=== PATIENT | female | born 1990 | race Caucasian/White ===

== ENCOUNTER 2018-03-13 19:30 | Inpatient (IN) | payer OTHER ==
--- NOTE | 2018-03-13 20:25 | HP ---
CIWA Score - CIWA Score Nausea/Vomitin-Mild Nausea/No Vomiting Muscle Tremors: 4-Moderate,w/Arms Extend Anxiety: 4-Mod. Anxious/Guarded Agitation: 4-Moderately Restless Paroxysmal Sweats: No Perspiration Orientation: 3-Disoriented Date>2 days Tacttile Disturbances: 0-None Auditory Disturbances: 0-None Visual Disturbances: 0-None Headache: 3-Moderate CIWA-Ar Total Score: 19 Admission ROS B[facility] - HPI Chief Complaint: SEEKING DETOX TXMENT FOR ALCOHOL WITHDRAWAL Allergies/Adverse Reactions: Allergies Allergy/AdvReac Type Severity Reaction Status Date / Time No Known Allergies Allergy Verified 03/13/18 20:21 History of Present Illness: 27 Y.O. FEMALE WITH LONG HX/O ALCOHOL HERE FOR DETOX. SHE IS SELF REFERRED. KNOWN TO OTHER DETOX PROGRAMS. LAST BEING 2 YEARS AGO AT [facility] [place]. STATES LONGEST CLEAN TIME 8 MONTHS WHILE INCARCERATED. DENIES HX/O SEIZURES, DT, BLACKOUTS, SI. PMHX: DENIES PSYCH: BIPOLAR, DEPRESSION, ANXIETY, PTSD Exam Limitations: No Limitations - Ebola screening Have you traveled outside of the country in the last 21 days: No Have you had contact with anyone from an Ebola affected area: No Have you been sick,other than usual withdrawal symptoms: No Do you have a fever: No - Review of Systems Constitutional: Chills, Loss of Appetite, Night Sweats, Changes in sleep EENT: reports: Nose Congestion Respiratory: reports: No Symptoms reported Cardiac: reports: No Symptoms Reported GI: reports: Nausea, Poor Appetite, Poor Fluid Intake : reports: No Symptoms Reported Musculoskeletal: reports: No Symptoms Reported Integumentary: reports: No Symptoms Reported Neuro: reports: No Symptoms reported Endocrine: reports: No Symptoms Reported Hematology: reports: No Symptoms Reported Psychiatric: reports: Anxious, Depressed Other Systems: Reviewed and Negative Patient History - Patient Medical History Hx Anemia: No Hx Asthma: No Hx Chronic Obstructive Pulmonary Disease (COPD): No Hx Cancer: No Hx Cardiac Disorders: No Hx Congestive Heart Failure: No Hx Hypercholesterolemia: No Hx Pacemaker: No HX Cerebrovascular Accident: No Hx Seizures: No Hx Dementia: No Hx Diabetes: No Hx Gastrointestinal Disorders: No Hx Liver Disease: No Hx Genitourinary Disorders: No Hx Sexually Transmitted Disorders: No Hx Renal Disease (ESRD): No Hx Thyroid Disease: No Hx Human Immunodeficiency Virus (HIV): No Hx Hepatitis C: No Hx Depression: Yes Hx Suicide Attempt: No Hx Bipolar Disorder: Yes Hx Schizophrenia: No Other Medical History: ANXIETY - Patient Surgical History Past Surgical History: No - PPD History Previous Implant?: Yes Documented Results: Negative w/o proof Implanted On Prior R Admission?: No PPD to be Administered?: Yes - Reproductive History Patient is a Female of Child Bearing Age (11 -55 yrs old): Yes Last Menstrual Period: 02/18/18 LMP comment: REG Patient : No (NE[facility] [place] - Smoking Cessation Smoking history: Current every day smoker Have you smoked in the past 12 months: Yes Aproximately how many cigarettes per day: 20 Cigars Per Day: 0 Hx Chewing Tobacco Use: No Initiated information on smoking cessation: Yes 'Breaking Loose' booklet given: 03/13/18 - Substance & Tx. History Hx Alcohol Use: Yes Hx Substance Use: Yes Substance Use Type: Alcohol, Cocaine Hx Substance Use Treatment: Yes ([facility]) - Substances Abused VODKA Route: Oral Frequency: Daily Amount used: 3LITERS Age of first use: 17 Date of Last Use: 03/13/18 COCAINE Route: Inhalation Frequency: 3-6 times per week Amount used: 1GM Q 2WK Age of first use: 22 Date of Last Use: 03/12/18 NADYA Route: Oral Frequency: 3-6 times per week Amount used: 1GM Q 2WK Age of first use: 23 Date of Last Use: 03/12/18 Family Disease History - Family Disease History Family History: Denies Admission Physical Exam [facility] Physical General Appearance: Yes: Appropriately Dressed, Mild Distress, Irritable HEENTM: Yes: EOMI, Normocephalic, Normal Voice, MARISA, Pharynx Normal Respiratory: Yes: Chest Non-Tender, Lungs Clear, Normal Breath Sounds, No Respiratory Distress, No Accessory Muscle Use Neck: Yes: No masses,lesions,Nodules, Supple, Trachea in good position Breast: Yes: Breast Exam Deferred Cardiology: Yes: Regular Rhythm, Regular Rate, S1, S2 Abdominal: Yes: Normal Bowel Sounds, Non Tender, Soft Genitourinary: Yes: Within Normal Limits Back: Yes: Normal Inspection Musculoskeletal: Yes: full range of Motion, Gait Steady Extremities: Yes: Normal Range of Motion, Non-Tender Neurological: Yes: Alert, Motor Strength 5/5, Disoriented (DATE) Integumentary: Yes: Normal Color, Dry, Cold Lymphatic: Yes: Within Normal Limits - Diagnostic (1) Alcohol dependence with uncomplicated withdrawal Current Visit: Yes Status: Acute (2) MDMA abuse Current Visit: Yes Status: Chronic (3) Nicotine dependence Current Visit: Yes Status: Chronic Qualifiers: Nicotine product type: cigarettes Substance use status: uncomplicated Qualified Code(s): F17.210 - Nicotine dependence, cigarettes, uncomplicated (4) Substance induced mood disorder Current Visit: Yes Status: Suspected (5) Cocaine dependence, uncomplicated Current Visit: Yes Status: Chronic Cleared for Admission [facility] - Detox or Rehab [facility] Level of Care: Medically Managed Detox Regimen/Protocol: Librium Claeared for Rehab Admission: No
[2018-03-13] MEDS ORDERED: IBUPROFEN 400 MG TABLET (FP) PO PRN (20:39)
[2018-03-13] MEDS ORDERED: chlordiazePOXIDE HCL 25 MG CAPSULE PO PRN (20:39)
[2018-03-13] MEDS ORDERED: NICOTINE POLACRILEX 2 MG GUM BC PRN (20:39)
[2018-03-13] MEDS ORDERED: MAGNESIUM HYDROX 2400MG/30ML ORAL SUSPENSION 30 ML CUP PO PRN (20:39)
[2018-03-13] MEDS ORDERED: MAG HYDROX/AL HYDROX/SIMETH 30 ML UNIT-DOSE CUP PO PRN (20:39)
[2018-03-13] MEDS ORDERED: hydrOXYzine PAMOATE 50 MG CAPSULE (FP) PO PRN (20:39)
[2018-03-13] MEDS ORDERED: LOPERAMIDE HCL 2 MG CAPSULE PO PRN (20:39)
[2018-03-13] MEDS ORDERED: ACETAMINOPHEN 325 MG TABLET (FP) PO PRN (20:39)
[2018-03-13] MEDS ORDERED: MENTHOL/PHENOL 1 EACH UD MM PRN (20:39)
[2018-03-13] MEDS ORDERED: MAGNESIUM CITRATE 300 ML BOTTLE PO PRN (20:39)
[2018-03-13] MEDS ORDERED: guaiFENesin/D-METHORPHAN HB 10 ML UNIT-DOSE CUPS PO PRN (20:39)
[2018-03-13] MEDS ORDERED: P-EPHED 60MG/TRIPROLIDI 2.5MG TABLET PO PRN (20:39)
[2018-03-13 20:53] VITALS: BMI 31.2
[2018-03-13] MEDS ORDERED: MELATONIN 5 MG TABLETS PO PRN (22:00)
[2018-03-13] MEDS: THIAMINE HCL 100 MG TABLET (FP) PO SCH (22:16)
[2018-03-13] MEDS: chlordiazePOXIDE HCL 25 MG CAPSULE PO SCH (22:16)
[2018-03-13 23:20] LABS: URINE APPEARANCE CLEAR; URINE BILIRUBIN NEGATIVE (<2.0 mg/dL); URINE BLOOD NEGATIVE (NEGATIVE); URINE COLOR YELLOW; URINE GLUCOSE (UA) NEGATIVE (NEGATIVE); URINE KETONE 1+ (NEGATIVE); URINE LEUK ESTERASE NEGATIVE (NEGATIVE); URINE NITRITE NEGATIVE (NEGATIVE); URINE PROTEIN NEGATIVE (NEGATIVE)
[2018-03-14] MEDS: chlordiazePOXIDE HCL 25 MG CAPSULE PO SCH ×4 (05:54→22:09)
[2018-03-14 10:30] LABS: HEMATOCRIT 36.1 % (32.4-45.2); HEMOGLOBIN 12.7 GM/dL (10.7-15.3); MCH 32.9 pg (25.7-33.7); MCHC 35.2 g/dl (32.0-36.0); MEAN CELL VOLUME 93.4 fl (80-96); MEAN PLT VOLUME 9.5 fl (7.5-11.1); PLATELET COUNT 178 K/MM3 (134-434); RBC 3.87 M/mm3 (3.60-5.2); RDW 13.3 % (11.6-15.6); WHITE BLOOD COUNT 5.2 K/mm3 (4.0-10.0)
[2018-03-14 10:39] LABS: ALBUMIN 3.4 g/dl (3.4-5.0); ANION GAP 5 (8-16); BLOOD UREA NITROGEN 15 mg/dL (7-18); CALCIUM 8.4 mg/dL (8.5-10.1); CHLORIDE 107 mmol/L (98-107); CO2 28 mmol/L (21-32); GLUCOSE,RANDOM 120 mg/dL (74-106); POTASSIUM 3.7 mmol/L (3.5-5.1); SGOT/AST 14 U/L (15-37); SGPT/ALT 19 U/L (12-78); SODIUM 140 mmol/L (136-145)
[2018-03-14 10:42] LABS: ALK PHOS 69 U/L (45-117); BILIRUBIN,TOTAL 0.4 mg/dL (0.2-1.0); CREATININE 0.6 mg/dL (0.55-1.02); TOT PROT 6.4 g/dl (6.4-8.2)
[2018-03-14] MEDS: PRENATAL VITAMINS W/ FOLIC ACID TABLET (FP) PO SCH (11:07)
--- NOTE | 2018-03-14 13:42 | CONSULT ---
[facility] Psychiatric Consult - Data Date of interview: 03/14/18 Admission source: [facility] Identifying data: Patient is a 27 year old female, domiciled, mother of one and currently unemployed. This is patient's first admission to [facility]. Pt. admitted to for alcohol and cocaine dependence. Substance Abuse History: Smoking Cessation. Smoking history: Current every day smoker. Have you smoked in the past 12 months: Yes. Aproximately how many cigarettes per day: 20. Cigars Per Day: 0. Hx Chewing Tobacco Use: No. Initiated information on smoking cessation: Yes. 'Breaking Loose' booklet given : 03/13/18. - Substance & Tx. History. Hx Alcohol Use: Yes. Hx Substance Use : Yes. Substance Use Type: Alcohol, Cocaine. Hx Substance Use Treatment: Yes ( [facility]). - Substances Abused. VODKA. Route: Oral. Frequency: Daily. Amount used: 3LITERS. Age of first use: 17. Date of Last Use: 03/13/18. COCAINE. Route: Inhalation. Frequency: 3-6 times per week. Amount used: 1GM Q 2WK. Age of first use: 22. Date of Last Use: 03/12/18. NADYA. Route: Oral. Frequency: 3-6 times per week. Amount used: 1GM Q 2WK. Age of first use : 23. Date of Last Use: 03/12/18 Medical History: Denies. Psychiatric History: Patient reports seeing a psychiatrist while in [facility]. States she was diagnosed with depression and anxiety. Reports being prescribed wellbutrin 300mg XL and Gabapentin 300mg TID. Pt. was incarcerated for a total of eight months for gun charges and tampering for evidence. Pt. was released from [facility] on saturday therefore has not taken medications since her release. Pt. denies h/o psychiatric hospitalization, outpatient care, and suicide attempt. Physical/Sexual Abuse/Trauma History: Denies. Mental Status Exam - Mental Status Exam Alert and Oriented to: Time, Place, Person Cognitive Function: Good Patient Appearance: Well Groomed Mood: Withdrawn, Euthymic Affect: Mood Congruent Patient Behavior: Cooperative Speech Pattern: Appropriate Voice Loudness: Normal Thought Process: Goal Oriented Thought Disorder: Not Present Hallucinations: Denies Suicidal Ideation: Denies Homicidal Ideation: Denies Insight/Judgement: Poor Sleep: Poorly Appetite: Fair Muscle strength/Tone: Normal Gait/Station: Other (Did not observe patient's gait) Psychiatric Findings - Problem List ([place] 1, 2,3) (1) Alcohol dependence with uncomplicated withdrawal Current Visit: Yes Status: Acute (2) Cocaine dependence, uncomplicated Current Visit: Yes Status: Chronic (3) Nicotine dependence Current Visit: Yes Status: Chronic Qualifiers: Nicotine product type: cigarettes Substance use status: uncomplicated Qualified Code(s): F17.210 - Nicotine dependence, cigarettes, uncomplicated (4) Substance induced mood disorder Current Visit: Yes Status: Acute - Initial Treatment Plan Initial Treatment Plan: Psychoeducation provided. Detoxification in progress. Wellbutrin 150mg XL + gabapentin 300mg TID + Trazodone 50mg qhs ordered. Benefits and side effects discussed. Verbal consent given. Will continue to monitor.
--- NOTE | 2018-03-14 14:19 | PN ---
S CIWA - CIWA Score Nausea/Vomitin Muscle Tremors: 3 Anxiety: 3 Agitation: 3 Paroxysmal Sweats: 1-Minimal Palms Moist Orientation: 0-Oriented Tacttile Disturbances: 1-Very Mild Itch/Numbness Auditory Disturbances: 1-Very Mild Visual Disturbances: 0-None Headache: 2-Mild CIWA-Ar Total Score: 17 S Progress Note (SOAP) Subjective: alert,irritable,anxious,interrupted sleep,tremor Objective: 03/14/18 14:15 Vital Signs Temperature 98.1 F 03/14/18 14:08 Pulse Rate 85 03/14/18 14:08 Respiratory Rate 18 03/14/18 14:08 Blood Pressure 117/71 03/14/18 14:08 O2 Sat by Pulse Oximetry (%) ekg nsr,incomplete rbbb,qt 364/425 no chest pain,no sob,no dizziness Laboratory Last Values WBC 5.2 K/mm3 (4.0-10.0) 03/14/18 07:30 RBC 3.87 M/mm3 (3.60-5.2) 03/14/18 07:30 Hgb 12.7 GM/dL (10.7-15.3) 03/14/18 07:30 Hct 36.1 % (32.4-45.2) 03/14/18 07:30 MCV 93.4 fl (80-96) 03/14/18 07:30 MCH 32.9 pg (25.7-33.7) 03/14/18 07:30 MCHC 35.2 g/dl (32.0-36.0) 03/14/18 07:30 RDW 13.3 % (11.6-15.6) 03/14/18 07:30 Plt Count 178 K/MM3 (134-434) 03/14/18 07:30 MPV 9.5 fl (7.5-11.1) 03/14/18 07:30 Sodium 140 mmol/L (136-145) 03/14/18 07:30 Potassium 3.7 mmol/L (3.5-5.1) 03/14/18 07:30 Chloride 107 mmol/L (98-107) 03/14/18 07:30 Carbon Dioxide 28 mmol/L (21-32) 03/14/18 07:30 Anion Gap 5 (8-16) L 03/14/18 07:30 BUN 15 mg/dL (7-18) 03/14/18 07:30 Creatinine 0.6 mg/dL (0.55-1.02) 03/14/18 07:30 Creat Clearance w eGFR > 60 (>60) 03/14/18 07:30 Random Glucose 120 mg/dL (74-106) H 03/14/18 07:30 Calcium 8.4 mg/dL (8.5-10.1) L 03/14/18 07:30 Total Bilirubin 0.4 mg/dL (0.2-1.0) 03/14/18 07:30 AST 14 U/L (15-37) L 03/14/18 07:30 ALT 19 U/L (12-78) 03/14/18 07:30 Alkaline Phosphatase 69 U/L (45-117) 03/14/18 07:30 Total Protein 6.4 g/dl (6.4-8.2) 03/14/18 07:30 Albumin 3.4 g/dl (3.4-5.0) 03/14/18 07:30 Urine Color Yellow 03/13/18 23:10 Urine Appearance Clear 03/13/18 23:10 Urine pH 6.0 (5.0-8.0) 03/13/18 23:10 Ur Specific [place] 1.024 (1.001-1.035) 03/13/18 23:10 Urine Protein Negative (NEGATIVE) 03/13/18 23:10 Urine Glucose (UA) Negative (NEGATIVE) 03/13/18 23:10 Urine Ketones 1+ (NEGATIVE) H 03/13/18 23:10 Urine Blood Negative (NEGATIVE) 03/13/18 23:10 Urine Nitrite Negative (NEGATIVE) 03/13/18 23:10 Urine Bilirubin Negative (<2.0 mg/dL) 03/13/18 23:10 Urine Urobilinogen 2.0 mg/dL (0.2-1.0) H 03/13/18 23:10 Ur Leukocyte Esterase Negative (NEGATIVE) 03/13/18 23:10 RPR Titer Nonreactive (NONREACTIVE) 03/14/18 07:30 Assessment: 03/14/18 14:18 withdrawal symptom Plan: continue detox,bgm 120,fasting glucose in am
[2018-03-14] MEDS: GABAPENTIN 300 MG CAPSULE (FP) PO SCH ×2 (14:59→22:09)
[2018-03-14] MEDS ORDERED: traZODone HCL 50 MG TABLET (FP) PO SCH (22:00)
[2018-03-14] MEDS: THIAMINE HCL 100 MG TABLET (FP) PO SCH (22:09)
[2018-03-15] MEDS: GABAPENTIN 300 MG CAPSULE (FP) PO SCH (07:20)
[2018-03-15] MEDS: chlordiazePOXIDE HCL 25 MG CAPSULE PO SCH ×2 (07:20→10:19)
[2018-03-15] MEDS: PRENATAL VITAMINS W/ FOLIC ACID TABLET (FP) PO SCH (10:19)
[2018-03-15 10:51] VITALS: BP 108/57; PULSE 63; TEMP 98
[2018-03-15] MEDS ORDERED: ONDANSETRON *ODT* 4 MG TABLET SL PRN (11:59)
--- NOTE | 2018-03-15 11:59 | PN ---
S CIWA - CIWA Score Nausea/Vomitin Muscle Tremors: 3 Anxiety: 3 Agitation: 3 Paroxysmal Sweats: 1-Minimal Palms Moist Orientation: 0-Oriented Tacttile Disturbances: 1-Very Mild Itch/Numbness Auditory Disturbances: 1-Very Mild Visual Disturbances: 0-None Headache: 2-Mild CIWA-Ar Total Score: 17 BHS Progress Note (SOAP) Subjective: alert,irritable,anxious,interrupted sleep,pain in the body Objective: 03/15/18 11:56 Vital Signs Temperature 98 F 03/15/18 10:50 Pulse Rate 63 03/15/18 10:50 Respiratory Rate 18 03/15/18 10:50 Blood Pressure 108/57 03/15/18 10:50 O2 Sat by Pulse Oximetry (%) Vital Signs Temperature 98 F 03/15/18 10:50 Pulse Rate 63 03/15/18 10:50 Respiratory Rate 18 03/15/18 10:50 Blood Pressure 108/57 03/15/18 10:50 O2 Sat by Pulse Oximetry (%) 03/15/18 11:57 Laboratory Last Values WBC 5.2 K/mm3 (4.0-10.0) 03/14/18 07:30 RBC 3.87 M/mm3 (3.60-5.2) 03/14/18 07:30 Hgb 12.7 GM/dL (10.7-15.3) 03/14/18 07:30 Hct 36.1 % (32.4-45.2) 03/14/18 07:30 MCV 93.4 fl (80-96) 03/14/18 07:30 MCH 32.9 pg (25.7-33.7) 03/14/18 07:30 MCHC 35.2 g/dl (32.0-36.0) 03/14/18 07:30 RDW 13.3 % (11.6-15.6) 03/14/18 07:30 Plt Count 178 K/MM3 (134-434) 03/14/18 07:30 MPV 9.5 fl (7.5-11.1) 03/14/18 07:30 Sodium 140 mmol/L (136-145) 03/14/18 07:30 Potassium 3.7 mmol/L (3.5-5.1) 06/08/18 07:30 Chloride 107 mmol/L (98-107) 03/14/18 07:30 Carbon Dioxide 28 mmol/L (21-32) 03/14/18 07:30 Anion Gap 5 (8-16) L 03/14/18 07:30 BUN 15 mg/dL (7-18) 03/14/18 07:30 Creatinine 0.6 mg/dL (0.55-1.02) 03/14/18 07:30 Creat Clearance w eGFR > 60 (>60) 03/14/18 07:30 Random Glucose 120 mg/dL (74-106) H 03/14/18 07:30 Calcium 8.4 mg/dL (8.5-10.1) L 03/14/18 07:30 Total Bilirubin 0.4 mg/dL (0.2-1.0) 03/14/18 07:30 AST 14 U/L (15-37) L 03/14/18 07:30 ALT 19 U/L (12-78) 03/14/18 07:30 Alkaline Phosphatase 69 U/L (45-117) 03/14/18 07:30 Total Protein 6.4 g/dl (6.4-8.2) 03/14/18 07:30 Albumin 3.4 g/dl (3.4-5.0) 03/14/18 07:30 Urine Color Yellow 03/13/18 23:10 Urine Appearance Clear 03/13/18 23:10 Urine pH 6.0 (5.0-8.0) 03/13/18 23:10 Ur Specific [place] 1.024 (1.001-1.035) 03/13/18 23:10 Urine Protein Negative (NEGATIVE) 03/13/18 23:10 Urine Glucose (UA) Negative (NEGATIVE) 03/13/18 23:10 Urine Ketones 1+ (NEGATIVE) H 03/13/18 23:10 Urine Blood Negative (NEGATIVE) 03/13/18 23:10 Urine Nitrite Negative (NEGATIVE) 03/13/18 23:10 Urine Bilirubin Negative (<2.0 mg/dL) 03/13/18 23:10 Urine Urobilinogen 2.0 mg/dL (0.2-1.0) H 03/13/18 23:10 Ur Leukocyte Esterase Negative (NEGATIVE) 03/13/18 23:10 RPR Titer Nonreactive (NONREACTIVE) 03/14/18 07:30 Assessment: 03/15/18 11:58 withdrawal symptom Plan: continue detox
--- NOTE | 2018-03-15 12:05 | DS ---
[facility] Detox Discharge Summary Admission Date: 03/13/18 Discharge Date: 03/15/18 - History Present History: Alcohol Dependence, Cocaine Dependence Additional Comments: patient did not want to complete treatment due to family emergency,all attempts to convince patient to stay with no avail, seen by counselor,jeffy philippe Pertinent Past History: nicotine dependence - Physical Exam Results Vital Signs: Vital Signs Temperature 98 F 03/15/18 10:50 Pulse Rate 63 03/15/18 10:50 Respiratory Rate 18 03/15/18 10:50 Blood Pressure 108/57 03/15/18 10:50 O2 Sat by Pulse Oximetry (%) Pertinent Admission Physical Exam Findings: withdrawal signs and symptom Vital Signs Temperature 98 F 03/15/18 10:50 Pulse Rate 63 03/15/18 10:50 Respiratory Rate 18 03/15/18 10:50 Blood Pressure 108/57 03/15/18 10:50 O2 Sat by Pulse Oximetry (%) Laboratory Last Values WBC 5.2 K/mm3 (4.0-10.0) 03/14/18 07:30 RBC 3.87 M/mm3 (3.60-5.2) 03/14/18 07:30 Hgb 12.7 GM/dL (10.7-15.3) 03/14/18 07:30 Hct 36.1 % (32.4-45.2) 03/14/18 07:30 MCV 93.4 fl (80-96) 03/14/18 07:30 MCH 32.9 pg (25.7-33.7) 03/14/18 07:30 MCHC 35.2 g/dl (32.0-36.0) 03/14/18 07:30 RDW 13.3 % (11.6-15.6) 03/14/18 07:30 Plt Count 178 K/MM3 (134-434) 03/14/18 07:30 MPV 9.5 fl (7.5-11.1) 03/14/18 07:30 Sodium 140 mmol/L (136-145) 03/14/18 07:30 Potassium 3.7 mmol/L (3.5-5.1) 03/14/18 07:30 Chloride 107 mmol/L (98-107) 03/14/18 07:30 Carbon Dioxide 28 mmol/L (21-32) 03/14/18 07:30 Anion Gap 5 (8-16) L 03/14/18 07:30 BUN 15 mg/dL (7-18) 03/14/18 07:30 Creatinine 0.6 mg/dL (0.55-1.02) 03/14/18 07:30 Creat Clearance w eGFR > 60 (>60) 03/14/18 07:30 Random Glucose 120 mg/dL (74-106) H 03/14/18 07:30 Calcium 8.4 mg/dL (8.5-10.1) L 03/14/18 07:30 Total Bilirubin 0.4 mg/dL (0.2-1.0) 03/14/18 07:30 AST 14 U/L (15-37) L 03/14/18 07:30 ALT 19 U/L (12-78) 03/14/18 07:30 Alkaline Phosphatase 69 U/L (45-117) 03/14/18 07:30 Total Protein 6.4 g/dl (6.4-8.2) 03/14/18 07:30 Albumin 3.4 g/dl (3.4-5.0) 03/14/18 07:30 Urine Color Yellow 03/13/18 23:10 Urine Appearance Clear 03/13/18 23:10 Urine pH 6.0 (5.0-8.0) 03/13/18 23:10 Ur Specific [place] 1.024 (1.001-1.035) 03/13/18 23:10 Urine Protein Negative (NEGATIVE) 03/13/18 23:10 Urine Glucose (UA) Negative (NEGATIVE) 03/13/18 23:10 Urine Ketones 1+ (NEGATIVE) H 03/13/18 23:10 Urine Blood Negative (NEGATIVE) 03/13/18 23:10 Urine Nitrite Negative (NEGATIVE) 03/13/18 23:10 Urine Bilirubin Negative (<2.0 mg/dL) 03/13/18 23:10 Urine Urobilinogen 2.0 mg/dL (0.2-1.0) H 03/13/18 23:10 Ur Leukocyte Esterase Negative (NEGATIVE) 03/13/18 23:10 RPR Titer Nonreactive (NONREACTIVE) 03/14/18 07:30 - Medication Discharge Medications: Ambulatory Orders Bupropion HCl [Wellbutrin -] 300 mg PO HS 03/13/18 Bupropion HCl [Wellbutrin Xl] 150 mg PO DAILY #30 tab.er.24h 03/14/18 Gabapentin 300 mg PO TID #60 capsule 03/14/18 traZODone HCL [Desyrel -] 50 mg PO HS #30 tablet 03/14/18 - Diagnosis (1) Alcohol dependence with uncomplicated withdrawal Current Visit: Yes Status: Acute (2) Nicotine dependence Current Visit: Yes Status: Chronic Qualifiers: Nicotine product type: cigarettes Substance use status: uncomplicated Qualified Code(s): F17.210 - Nicotine dependence, cigarettes, uncomplicated (3) Substance induced mood disorder Current Visit: Yes Status: Acute - AMA Did Patient Leave Against Medical Advice: Yes
--- NOTE | 2018-03-15 14:51 | EKG ---
Test Reason : Blood Pressure : / mmHG Vent. Rate : 082 BPM Atrial Rate : 082 BPM P-R Int : 160 ms QRS Dur : 096 ms QT Int : 364 ms P-R-T Axes : 031 076 055 degrees QTc Int : 425 ms NORMAL SINUS RHYTHM INCOMPLETE RIGHT BUNDLE BRANCH BLOCK BORDERLINE ECG NO PREVIOUS ECGS AVAILABLE Confirmed by MD Krzysztof, Carlton ([id number]) on 03/15/2018 2:51:21 PM Referred By: Confirmed By:Carlton Blankenship MD
[2018-03-15] MEDS ORDERED: chlordiazePOXIDE 5 MG CAPSULE PO SCH (23:00)
[2018-03-16] MEDS ORDERED: chlordiazePOXIDE HCL 10 MG CAPSULE PO SCH (23:00)
== END 2018-03-15 12:52 | disposition left against medical advice (07) | DRG 770 ==
LOC: YASAS 19:30 → Y6N 21:20
PROVIDERS: ADMIT Surgery; ATTEND Surgery
PROC: HZ2ZZZZ Detoxification Services for Substance Abuse Treatment (ICD-10-PCS; principal; 2018-03-13)
DX: F10.230 Alcohol dependence with withdrawal, uncomplicated (principal); F14.20 Cocaine dependence, uncomplicated; F16.10 Hallucinogen abuse, uncomplicated; F19.24 Other psychoactive substance dependence with psychoactive substance-induced mood disorder
CPT/HCPCS: 36415; 80053; 81003; 85027; 86593; 93005; 93010